=== PATIENT | female | born 1950 | race Caucasian/White ===

== ENCOUNTER 2020-06-05 18:30 | Observation (INO) ==
--- NOTE | 2020-06-05 19:16 | Emergency Department Note ---
Impression & Plan Left-sided chest pain, Pulmonary emboli, Pleuritic chest pain, Elevated d-dimer ED Provider Note NAME: CHAU FISHER AGE: 69 SEX: F : 1950 ARRIVES VIA: Walk-In INFORMANT: [Patient] ED PROVIDER(S): [Damian Johnson MD] CHIEF COMPLAINT: Shortness of breath HISTORY OF PRESENT ILLNESS: The patient is a 69-year-old female who presents to the ED with left-sided chest pain and dyspnea. Her symptoms have been present all day. The pain is worse to take a breath, worse to move and worse to lie flat. The pain is in the left arm and left chest. The pain is a 10/10. The patient does feel somewhat short of breath. There has been no cough or congestion. No fever. The patient has a history of DVT. She states that she has had some pain in the area of the right calf. She is concerned about DVT recurrence. No recent Covid exposures. There has been no trauma, she has not noticed any rash across the chest. The patient does admit to some occasional reflux and heartburn as of late. She has no known coronary disease. Her chest pain does not worsen with exertion. REVIEW OF SYSTEMS: See HPI for pertinent positives and negatives. A total of ten systems were reviewed and were otherwise negative. PMHx/PSHx: See Below SOCIAL HISTORY: See Below. PHYSICAL EXAM: GENERAL: Patient is in no acute distress. HEENT: No acute trauma, normocephalic atraumatic, mucous membranes moist, no nasal congestion, no scleral icterus. NECK: No stridor, no adenopathy, no meningismus, trachea is midline. LUNGS: Clear to auscultation bilaterally, no wheeze, no rhonchi, breath sounds equal. HEART: Without murmurs gallops or rubs, regular rate and rhythm. Chest: Tender to the lateral left lower chest wall. There is no rash. Pain does worsen with certain movements and with deep breathing. ABDOMEN: Soft, nontender, bowel sounds positive, no hernias, no peritonitis. EXTREMITIES: No cyanosis, mild bilateral pedal edema, full range of motion of all the joints without pain or difficulty, no signs for acute trauma. There are some varicose veins present in the area of the right calf. NEUROLOGIC: Oriented x 3, no acute motor or sensory deficits, no focal weakness. SKIN: No rash, no jaundice, no diaphoresis. DIFFERENTIAL DIAGNOSIS: Cardiac ischemia, aortic dissection, pulmonary embolism, DVT, pneumothorax, shingles, pneumonia, pericarditis, myocarditis, esophageal rupture, GERD, cholecystitis, pancreatitis, musculoskeletal, as well as other pathologies. EMERGENCY DEPARTMENT COURSE/PROCEDURES: ECG: Indication was chest pain. The ECG shows a normal sinus rhythm with a rate of 88. There is no ST elevation, no PVCs. QTC is 401. Continuous Cardiac Monitoring: An order was placed for continuous cardiac monitoring. The monitor shows a rate of 81 with normal sinus rhythm. MEDICAL DECISION MAKING: There is no leukocytosis or concerning anemia. There is a normal platelet count. No coagulopathy. D-dimer is elevated making PE/DVT more likely. There is no significant electrolyte abnormality or kidney failure. No worrisome liver enzyme elevation. No evidence for pancreatitis. ECG showed a sinus rhythm, no acute ischemia. Cardiac enzyme testing x1 is not consistent with acute cardiac injury. Chest film showed some potential atelectasis at the left base. There was no pneumothorax or CHF. Right leg ultrasound did not show any DVT however, some superficial thrombophlebitis was seen. Chest CT shows multiple bilateral pulmonary emboli, more so on the left. Some pulmonary infarcts were seen at the left base. There was a small left pleural effusion. The patient presents with left-sided chest pain. The chest pain was pleuritic. She had an elevated D-dimer. She has multiple bilateral pulmonary emboli by CT imaging. Given the multiple emboli, given the pulmonary infarcts, I do think a hospital stay is warranted. A hypercoagulable work-up was ordered. I spoke to the patient about her findings. I spoke with the case management. I did consult with the on-call hospitalist. The patient was given a dose of Lovenox subcu at the request of the hospitalist. Past Med/Surg History Medical History DVT (deep vein thrombosis) in Sjogren's disease Social History Smoking Status: Never smoker Results & Data (ED) Vital Signs Vital Signs - 24 hr 06/05/20 18:34 06/05/20 19:32 06/05/20 19:33 Temperature 36.0 C L Temperature Source Skin Pulse Rate 118 H 84 Pulse Rate [Apical] 81 Pulse Rate from SpO2 Sensor 83 Respiratory Rate 24 18 16 Blood Pressure 147/87 H 150/79 H Blood Pressure [Left Arm] 150/79 H Blood Pressure Mean 107 110 Blood Pressure Mean [Left Arm] 102 Pulse Oximetry 97 96 97 Oxygen Delivery Method Room Air Room Air Room Air Sepsis Recent Fever Within 48 Hours No Sepsis New/Unexplained Change in Mental Status N/A Sepsis Action Taken by Nursing No Action Required 06/05/20 20:00 06/05/20 20:30 Temperature Temperature Source Pulse Rate Pulse Rate [Apical] Pulse Rate from SpO2 Sensor 84 85 Respiratory Rate 17 19 Blood Pressure 139/82 146/76 H Blood Pressure [Left Arm] Blood Pressure Mean 97 101 Blood Pressure Mean [Left Arm] Pulse Oximetry 95 95 Oxygen Delivery Method Room Air Room Air Sepsis Recent Fever Within 48 Hours Sepsis New/Unexplained Change in Mental Status Sepsis Action Taken by Prison Medications Current Medication List: was personally reviewed by me Laboratory Data Attestation: I reviewed the patient's lab results. Result diagrams: 06/05/20 19:37 06/05/20 19:37 Lab Results 06/05/20 06/05/20 06/05/20 Range/Units 19:37 19:37 19:37 WBC 8.41 (4.8-10.8) K/uL RBC 4.53 (4.2-5.4) M/uL Hgb 13.5 (12.0-16.0) g/dL Hct 40.4 (37-47) % MCV 89.2 (80-100) fL MCH 29.8 (25-34) pg MCHC 33.4 (32-36) g/dL RDW Std Deviation 44.1 (36.4-46.3) fL RDW Coeff of Ancelmo 13.4 (11.5-14.5) % Plt Count 229 (130-400) K/uL MPV 9.2 (7.4-10.4) fL Immature Gran % (Auto) 0.1 % Neut % (Auto) 80.0 % Lymph % (Auto) 12.2 % [place] % (Auto) 7.1 % Eos % (Auto) 0.5 % Baso % (Auto) 0.1 % Neut # (Auto) 6.72 H (1.4-6.5) K/uL Lymph # (Auto) 1.03 L (1.2-3.4) K/uL [place] # (Auto) 0.60 H (0.11-0.59) K/uL Eos # (Auto) 0.04 (0-0.5) K/uL Baso # (Auto) 0.01 (0-0.2) K/uL Immature Gran # (Auto) 0.01 (0.00-0.02) K/uL PT 10.7 (9.0-12.0) Seconds INR 1.0 (0.9-1.1) APTT 25.0 (21.0-31.0) Seconds PTT Ratio 0.9 D-Dimer 3890 H* (0-500) ug/L FEU Sodium 139 (136-145) mmol/L Potassium 4.0 (3.5-5.1) mmol/L Chloride 107 (98-107) mmol/L Carbon Dioxide 26 (21-32) mmol/L Anion Gap 7.0 (3-11) BUN 14 (7-18) mg/dl Creatinine 0.96 (0.6-1.2) mg/dl Est Cr Clr Drug Dosing 52.5 ml/min Est GFR ( Amer) 70.4 Est GFR (Non-Af Amer) 60.8 BUN/Creatinine Ratio 14.5 (10-20) Glucose 114 H (70-99) mg/dl Calcium 9.4 (8.5-10.1) mg/dl Total Bilirubin 0.5 (0.2-1) mg/dl AST 17 (15-37) U/L ALT 26 (12-78) U/L Alkaline Phosphatase 75 (45-117) U/L Troponin I < 0.015 (0-0.045) ng/ml Total Protein 8.4 H (6.4-8.2) gm/dl Albumin 3.6 (3.4-5.0) gm/dl Globulin 4.8 H (2.5-4.0) gm/dl Albumin/Globulin Ratio 0.8 L (0.9-2) Lipase 146 (73-393) U/L Urine Color Urine Appearance (Clear) Urine pH (4.5-7.5) Ur Specific [place] (1.000-1.030) Urine Protein (Negative) Urine Glucose (UA) (Negative) Urine Ketones (Negative) Urine Blood (Negative) Urine Nitrite (Negative) Urine Bilirubin (Negative) Urine Urobilinogen (Negative) Ur Leukocyte Esterase (Negative) Urine RBC (0-4) /hpf Urine WBC (0-5) /hpf Ur Epithelial Cells (0-5) /lpf Urine Bacteria (Negative) 06/05/20 Range/Units 20:37 WBC (4.8-10.8) K/uL RBC (4.2-5.4) M/uL Hgb (12.0-16.0) g/dL Hct (37-47) % MCV (80-100) fL MCH (25-34) pg MCHC (32-36) g/dL RDW Std Deviation (36.4-46.3) fL RDW Coeff of Ancelmo (11.5-14.5) % Plt Count (130-400) K/uL MPV (7.4-10.4) fL Immature Gran % (Auto) % Neut % (Auto) % Lymph % (Auto) % [place] % (Auto) % Eos % (Auto) % Baso % (Auto) % Neut # (Auto) (1.4-6.5) K/uL Lymph # (Auto) (1.2-3.4) K/uL [place] # (Auto) (0.11-0.59) K/uL Eos # (Auto) (0-0.5) K/uL Baso # (Auto) (0-0.2) K/uL Immature Gran # (Auto) (0.00-0.02) K/uL PT (9.0-12.0) Seconds INR (0.9-1.1) APTT (21.0-31.0) Seconds PTT Ratio D-Dimer (0-500) ug/L FEU Sodium (136-145) mmol/L Potassium (3.5-5.1) mmol/L Chloride (98-107) mmol/L Carbon Dioxide (21-32) mmol/L Anion Gap (3-11) BUN (7-18) mg/dl Creatinine (0.6-1.2) mg/dl Est Cr Clr Drug Dosing ml/min Est GFR ( Amer) Est GFR (Non-Af Amer) BUN/Creatinine Ratio (10-20) Glucose (70-99) mg/dl Calcium (8.5-10.1) mg/dl Total Bilirubin (0.2-1) mg/dl AST (15-37) U/L ALT (12-78) U/L Alkaline Phosphatase (45-117) U/L Troponin I (0-0.045) ng/ml Total Protein (6.4-8.2) gm/dl Albumin (3.4-5.0) gm/dl Globulin (2.5-4.0) gm/dl Albumin/Globulin Ratio (0.9-2) Lipase (73-393) U/L Urine Color Yellow Urine Appearance Clear (Clear) Urine pH 7.0 (4.5-7.5) Ur Specific [place] 1.015 (1.000-1.030) Urine Protein Negative (Negative) Urine Glucose (UA) Negative (Negative) Urine Ketones Negative (Negative) Urine Blood Trace H (Negative) Urine Nitrite Negative (Negative) Urine Bilirubin Negative (Negative) Urine Urobilinogen Negative (Negative) Ur Leukocyte Esterase Trace H (Negative) Urine RBC 0-4 (0-4) /hpf Urine WBC 10-30 H (0-5) /hpf Ur Epithelial Cells >30 H (0-5) /lpf Urine Bacteria 1+ H (Negative) Administered Medications Discontinued Medications Ioversol (Optiray 320 125ml) 120 ml IV ONCE ONE Stop: 06/05/20 21:20 Last Admin: 06/05/20 21:20 Dose: 120 ml Documented by: [id number] Imaging Data Radiologist's Impression: XR chest 1V portable CLINICAL HISTORY: Atypical chest pain COMPARISON STUDY: No previous studies for comparison. FINDINGS: The heart is normal in size. There are minor left basilar opacity statistically atelectatic. There is no lobar consolidation. There is no failure. There are no pleural effusions.[ IMPRESSION: Minor left basilar opacities, likely atelectatic. No evidence of lobar consolidation Right leg ultrasound: There is no evidence for DVT within the right lower extremity. Right calf areas of superficial thrombophlebitis noted. Chest CT for PE: The study is positive for left more so than right multifocal pulmonary emboli mostly at the subsegmental and segmental levels. There is occlusive thrombi at the subsegmental branches of the left lower lobe. Some small patchy areas of opacity are seen at the left base which may represent atelectasis and/or infarct. There is a very small left pleural effusion. The thoracic aorta was unremarkable. There is no pericardial or right pleural effusion. Central airways are patent. Discharge Plan Visit Data Chief Complaint: Shortness of Breath/Dyspnea Stated Complaint: NECK PAIN TO RT ARM PAIN, RT SIDE PAIN, SOB ED Provider: Damian Johnson Discharge Problem: Left-sided chest pain, Pulmonary emboli, Pleuritic chest pain, Elevated d-dimer Patient Disposition: Admitted As Inpatient Condition: Good Forms Stand Alone Forms: [facility] Referrals Referrals: RYLAN VIDES [Other] Discharge Problem: Pulmonary emboli Qualifiers: Pulmonary embolism type: multiple subsegmental (without acute cor pulmonale) Qualified Code(s): I26.94 - Multiple subsegmental pulmonary emboli without acute cor pulmonale
[2020-06-05 19:48] LABS: Basophils # (auto) 0.01 K/uL (0-0.2); Basophils % (auto) 0.1 %; Eosinophils # (auto) 0.04 K/uL (0-0.5); Eosinophils % (auto) 0.5 %; Hematocrit (blood only) 40.4 % (37-47); Hemoglobin 13.5 g/dL (12.0-16.0); Immature Granulocytes # (auto) 0.01 K/uL (0.00-0.02); Immature Granulocytes % (auto) 0.1 %; Lymphocytes # (auto) 1.03 K/uL (1.2-3.4); Lymphocytes % (auto) 12.2 %; Mean Corpuscular Hemoglobin 29.8 pg (25-34); Mean Corpuscular Hgb Conc 33.4 g/dL (32-36); Mean Corpuscular Volume 89.2 fL (80-100); Mean Platelet Volume 9.2 fL (7.4-10.4); Monocytes % (auto) 7.1 %; Neutrophils # (auto) 6.72 K/uL (1.4-6.5); Platelet Count 229 K/uL (130-400); RDW Coefficient of Variation 13.4 % (11.5-14.5); RDW Standard Deviation 44.1 fL (36.4-46.3); Red Blood Count 4.53 M/uL (4.2-5.4); White Blood Count 8.41 K/uL (4.8-10.8)
--- NOTE | 2020-06-05 20:00 | XRay Report ---
XR chest 1V portable CLINICAL HISTORY: Atypical chest pain COMPARISON STUDY: No previous studies for comparison. FINDINGS: The heart is normal in size. There are minor left basilar opacity statistically atelectatic . There is no lobar consolidation. There is no failure. There are no pleural effusions.[ IMPRESSION: Minor left basilar opacities, likely atelectatic. No evidence of lobar consolidation ACT 112: Negative or not required by law. Electronically signed by: Juanito Matt M.D. 06/05/2020 7:59 PM
[2020-06-05 20:03] LABS: Partial Thromboplastin Ratio 0.9; Prothrombin Time 10.7 Seconds (9.0-12.0)
[2020-06-05 20:04] LABS: Alanine Aminotransferase 26 U/L (12-78); Albumin Level 3.6 gm/dl (3.4-5.0); Aspartate Aminotransferase 17 U/L (15-37); BUN Creatinine Ratio 14.5 (10-20); Blood Urea Nitrogen 14 mg/dl (7-18); Calcium 9.4 mg/dl (8.5-10.1); Carbon Dioxide 26 mmol/L (21-32); Chloride 107 mmol/L (98-107); Creatinine Clr Calc Pharmacy 52.5 ml/min; Est GFR (African American) 70.4; Est GFR (Non-African American) 60.8; Glucose 114 mg/dl (70-99); Lipase 146 U/L (73-393); Sodium 139 mmol/L (136-145)
[2020-06-05 20:09] LABS: Albumin Globulin Ratio 0.8 (0.9-2); Alkaline Phosphatase 75 U/L (45-117); Bilirubin,Total 0.5 mg/dl (0.2-1); Globulin 4.8 gm/dl (2.5-4.0); Total Protein 8.4 gm/dl (6.4-8.2); Troponin I < 0.015 ng/ml (0-0.045)
[2020-06-05 20:34] LABS: D Dimer 3890 ug/L FEU (0-500)
[2020-06-05 21:01] LABS: Appearance Urine Clear (Clear); Bilirubin Urine Negative (Negative); Blood Urine Trace (Negative); Color Urine Yellow; Glucose Urine UA Negative (Negative); Ketones Urine Negative (Negative); Leukocyte Esterase Urine Trace (Negative); Nitrite Urine Negative (Negative); Protein Urine Negative (Negative); Specific Gravity Urine 1.015 (1.000-1.030); Urobilinogen Urine Negative (Negative)
[2020-06-05] MEDS ORDERED: OPTIRAY 320 125ml IV ONE (21:19)
[2020-06-05 21:36] LABS: RBC Urine 0-4 /hpf (0-4)
[2020-06-05 21:37] LABS: Bacteria Urine 1+ (Negative); Epithelial Cell Urine >30 /lpf (0-5)
[2020-06-05] MEDS ORDERED: ENOXAPARIN 1 MG/KG SQ STA (21:51)
[2020-06-05] MEDS ORDERED: ENOXAPARIN 80 MG/0.8 ML SYR SQ STA (22:00)
--- NOTE | 2020-06-05 23:41 | History & Physical Report ---
Date of Service June 05, 2020 Assessment & Plan (1) Bilateral pulmonary embolism: Multifocal bilateral pulmonary emboli, left greater than right- Lower extremity venous Dopplers negative for DVT Placed on Lovenox 1 mg/kg subcu every 12 hours Family history of mother and maternal grandmother with pulmonary emboli. Emergency department as already ordered hypercoagulable work-up Present on Admission?: Yes (2) Hypothyroidism (acquired): Continue levothyroxine 25 mcg daily Present on Admission?: Yes (3) Sjogren's disease: Sjogren syndrome- Continue gabapentin 600 mg p.o. 3 times daily Present on Admission?: Yes (4) Dry eye syndrome: Continue Xiidra 1 drop OPB a.m. and p.m. Present on Admission?: Yes History of Present Illness Chief Complaint: The patient presents to the emergency department with complaint of left sided chest pain, shortness of breath and dyspnea on exertion Primary Care Provider: RYLAN VIDES The patient is a 69-year-old female with a past medical history including Sjogren's syndrome, hypothyroidism, and dry eye. She reports that both her mother and maternal grandmother have had clots in lungs. She reports that she had noted some right leg discomfort over the past few weeks, and has recently traveled to [place] from [facility] to be with family. She reports that she began to notice, after she got here, more significant pain in her right lower extremity, and then developed severe chest discomfort around 230 this a.m. which since it persisted throughout the day, prompted her to come to the emergency department for assessment. Significant abnormal laboratories: D-dimer 3890, glucose 114. Patient is COVID- 19 negative. Chest x-ray with no significant findings. CT angiography of chest was positive for left greater than right multifocal pulmonary embolism mostly at the segmental and subsegmental level. Occlusive at the subsegmental branches left lower lobe. Small patchy areas of opacity at the left base may represent atelectasis with developing infarct or infiltrate not excluded. Very small left pleural effusion. No pericardial or right pleural effusion. Allergies Allergy/AdvReac Type Severity Reaction Status Date / Time Penicillins Allergy Anaphylaxis Unverified 06/05/20 22:08 prochlorperazine Allergy Anaphylaxis Unverified 06/05/20 22:08 [From Compazine] Sulfa (Sulfonamide Allergy Hives Unverified 06/05/20 22:08 Antibiotics) Home Medications Medication Instructions Recorded Confirmed Type gabapentin 600 mg PO TID 06/05/20 06/05/20 History levothyroxine 25 mcg PO DAILY 06/05/20 06/05/20 History lifitegrast [Xiidra] 1 drp OPB AMPM 06/05/20 06/05/20 History Past Med/Surg History Medical History DVT (deep vein thrombosis) in Sjogren's disease Social History Smoking Status: Never smoker Hx Alcohol Use: No Hx Substance Use: No Preferred Language: Syriac Communication Ability: Effective 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 Beliefs That Will Affect Care: None Current Living Situation: Spouse Other Information That Helps Us Care for You: No Feels Safe at Home: Yes Safety Concerns: Feels Safe At This Time Assistive Devices: Glasses Review of Systems Review of Systems: The patient denies palpitations, cough, sore throat, fevers, chills, sweats, nausea, vomiting, diarrhea , constipation, abdominal pain, pelvic pain, blood in urine or stool, dysuria, urinary frequency or urgency, lightheadedness, dizziness, headache, memory loss, loss of consciousness, rash, abnormal bruising or bleeding, imbalance, focal or generalized weakness, generalized arthralgias or myalgias, neck pain, or night sweats. The review of systems is otherwise negative other than for that already noted above, and at least 10 systems have been reviewed. Physical Exam Physical Exam: The patient is awake, alert and oriented 3, well developed and well nourished, normocephalic and atraumatic, lying in bed and in no acute distress. HEENT--PERRL, EOMI, mucous membranes and oropharynx normal. Neck--supple. No JVD. No bruits. Thyroid normal, trachea midline, no adenopathy. Heart--normal S1 and S2. No murmurs, rubs or gallops. Lungs--clear bilaterally, no respiratory distress, no accessory muscle use. Abdomen--normal bowel sounds and soft. Nontender. Nondistended. Extremities--no cyanosis or clubbing. Right lower extremity with trace pretibial pitting edema. There are good distal pulses b/l. Dermatologic--normal skin turgor, normal color, no abnormal lymph nodes, no rash. Neurologic--cranial nerves II through XII grossly intact. Rheumatologic--normal range of motion. Psychiatric--normal affect. Results & Data Results & Data ([facility]) Vital Signs (Past 12 Hours) Vital Signs Temp Pulse Pulse Resp BP BP Pulse Ox 06/05/20 22:00 153/76 H 06/05/20 20:30 19 146/76 H 95 06/05/20 20:00 17 139/82 95 06/05/20 19:33 81 16 150/79 H 97 06/05/20 19:32 84 18 150/79 H 96 06/05/20 18:34 96.8 F L 118 H 24 147/87 H 97 Laboratory Results Laboratory Results WBC 8.41 K/uL (4.8-10.8) 06/05/20 19:37 RBC 4.53 M/uL (4.2-5.4) 06/05/20 19:37 Hgb 13.5 g/dL (12.0-16.0) 06/05/20 19:37 Hct 40.4 % (37-47) 06/05/20 19:37 MCV 89.2 fL (80-100) 06/05/20 19:37 MCH 29.8 pg (25-34) 06/05/20 19:37 MCHC 33.4 g/dL (32-36) 06/05/20 19:37 RDW Std Deviation 44.1 fL (36.4-46.3) 06/05/20 19:37 RDW Coeff of Ancelmo 13.4 % (11.5-14.5) 06/05/20 19:37 Plt Count 229 K/uL (130-400) 06/05/20 19:37 MPV 9.2 fL (7.4-10.4) 06/05/20 19:37 Immature Gran % (Auto) 0.1 % 06/05/20 19:37 Neut % (Auto) 80.0 % 06/05/20 19:37 Lymph % (Auto) 12.2 % 06/05/20 19:37 [place] % (Auto) 7.1 % 06/05/20 19:37 Eos % (Auto) 0.5 % 06/05/20 19:37 Baso % (Auto) 0.1 % 06/05/20 19:37 Neut # (Auto) 6.72 K/uL (1.4-6.5) H 06/05/20 19:37 Lymph # (Auto) 1.03 K/uL (1.2-3.4) L 06/05/20 19:37 [place] # (Auto) 0.60 K/uL (0.11-0.59) H 06/05/20 19:37 Eos # (Auto) 0.04 K/uL (0-0.5) 06/05/20 19:37 Baso # (Auto) 0.01 K/uL (0-0.2) 06/05/20 19:37 Immature Gran # (Auto) 0.01 K/uL (0.00-0.02) 06/05/20 19:37 PT 10.7 Seconds (9.0-12.0) 06/05/20 19:37 INR 1.0 (0.9-1.1) 06/05/20 19:37 APTT 25.0 Seconds (21.0-31.0) 06/05/20 19:37 PTT Ratio 0.9 06/05/20 19:37 D-Dimer 3890 ug/L FEU (0-500) H* 06/05/20 19:37 Sodium 139 mmol/L (136-145) 06/05/20 19:37 Potassium 4.0 mmol/L (3.5-5.1) 06/05/20 19:37 Chloride 107 mmol/L (98-107) 06/05/20 19:37 Carbon Dioxide 26 mmol/L (21-32) 06/05/20 19:37 Anion Gap 7.0 (3-11) 06/05/20 19:37 BUN 14 mg/dl (7-18) 06/05/20 19:37 Creatinine 0.96 mg/dl (0.6-1.2) 06/05/20 19:37 Est Cr Clr Drug Dosing 52.5 ml/min 06/05/20 19:37 Est GFR ( Amer) 70.4 06/05/20 19:37 Est GFR (Non-Af Amer) 60.8 06/05/20 19:37 BUN/Creatinine Ratio 14.5 (10-20) 06/05/20 19:37 Glucose 114 mg/dl (70-99) H 06/05/20 19:37 Calcium 9.4 mg/dl (8.5-10.1) 06/05/20 19:37 Total Bilirubin 0.5 mg/dl (0.2-1) 06/05/20 19:37 AST 17 U/L (15-37) 06/05/20 19:37 ALT 26 U/L (12-78) 06/05/20 19:37 Alkaline Phosphatase 75 U/L (45-117) 06/05/20 19:37 Troponin I < 0.015 ng/ml (0-0.045) 06/05/20 19:37 Total Protein 8.4 gm/dl (6.4-8.2) H 06/05/20 19:37 Albumin 3.6 gm/dl (3.4-5.0) 06/05/20 19:37 Globulin 4.8 gm/dl (2.5-4.0) H 06/05/20 19:37 Albumin/Globulin Ratio 0.8 (0.9-2) L 06/05/20 19:37 Lipase 146 U/L (73-393) 06/05/20 19:37 Urine Color Yellow 06/05/20 20:37 Urine Appearance Clear (Clear) 06/05/20 20:37 Urine pH 7.0 (4.5-7.5) 06/05/20 20:37 Ur Specific [place] 1.015 (1.000-1.030) 06/05/20 20:37 Urine Protein Negative (Negative) 06/05/20 20:37 Urine Glucose (UA) Negative (Negative) 06/05/20 20:37 Urine Ketones Negative (Negative) 06/05/20 20:37 Urine Blood Trace (Negative) H 06/05/20 20:37 Urine Nitrite Negative (Negative) 06/05/20 20:37 Urine Bilirubin Negative (Negative) 06/05/20 20:37 Urine Urobilinogen Negative (Negative) 06/05/20 20:37 Ur Leukocyte Esterase Trace (Negative) H 06/05/20 20:37 Urine RBC 0-4 /hpf (0-4) 06/05/20 20:37 Urine WBC 10-30 /hpf (0-5) H 06/05/20 20:37 Ur Epithelial Cells >30 /lpf (0-5) H 06/05/20 20:37 Urine Bacteria 1+ (Negative) H 06/05/20 20:37 SARS-CoV-2 Ag (Rapid) Negative (Negative) 06/05/20 22:24 Diagnostic Findings [facility], [id number] XRay Report Patient: Latha FISHER Date: 06/05/20MR#: [id number]: [address] [place] ID:[id number]: Date: [address] [place] [address] Zip: [place] [id number]: 69Location: EDSex: FRoom/Bed:Att Phy:Diagnosis: NECK PAIN TO RT ARM PAIN, RT SIDE PAIN, SOBPri Phy: RYLAN VIDES MService Date: 06/05/20Fam Phy:Interpreting Phy: Juanito Matt [facility] Phy: Ordering Phy: Damian Johnson M.D. cc: ~ XR chest 1V portable CLINICAL HISTORY: Atypical chest pain COMPARISON STUDY: No previous studies for comparison. FINDINGS: The heart is normal in size. There are minor left basilar opacity statistically atelectatic. There is no lobar consolidation. There is no failure. There are no pleural effusions.[ IMPRESSION: Minor left basilar opacities, likely atelectatic. No evidence of lobar consolidation ACT 112: Negative or not required by law. Electronically signed by: Juanito Matt M.D. 06/05/2020 7:59 PM Dictated: 06/05/201957Transcribed: 06/05/201957 [facility] Patient: CHAU FISHER (Female) : 52 Status: ER Date: 06/05/20 21:26 Room #: History: rt leg pains Slices: 34 Priors: Tech: Aury Escobar @ [phone] Exams: US VENOUS RIGHT LOWER EXTREMITY Contrast: Accession Numbers: [id number] Preliminary Findings Only See Final Report For Complete Findings US VENOUS RIGHT LOWER EXTREMITY: No evidence of DVT within the right lower extremity Right calf areas of superficial thrombophlebitis noted Radiologist: Lance Segura M.D. Study ready at 21:28 and initial results transmitted at 21:33 *This report constitutes a preliminary interpretation only. Non-acute findings felt to be unrelated to the clinical presentation may not be discussed in this report. The study will be interpreted and a final report will be generated by the local Radiologist the following shift. To reach the hospital radiology department call [phone]. If a discrepancy is found between the preliminary and final interpretations of this study, please notify us via our Client Portal at [email or web address].You can also fax this report with a description of the discrepancy, or include the final report, to our daytime fax number [phone].If faxing, please indicate the severity of discrepancy using one of the following categories: [ ] 1 - Agree/Informational [ ] 2 - Unlikely to Affect Management [ ] 3 - Possible Eventual Change of Management [ ] 4 - Probable Immediate Change of Management For all other patient related information, please fax us at [phone]. [id number] [facility] Patient: CHAU FISHER (Female) : 52 Status: ER Date: 06/05/20 21:27 Room #: History: left sided shoulder pain radiating to chest Slices: 750 Priors: Tech: Sang Pepe @ [phone] Exams: CTA CHEST Contrast: IV Amt: 120 Accession Numbers: [id number] Preliminary Findings Only See Final Report For Complete Findings CTA CHEST: The study is positive for left greater than right multifocal pulmonary embolism mostly at the segmental and subsegmental level Occlusive at the subsegmental branches left lower lobe Small patchy areas of opacity at the left base may represent atelectasis with developing infarct or infiltrate not excluded Very small left pleural effusion Thoracic aorta are within limits No pericardial or right pleural effusion The central airways are patent Radiologist: Lance Segura M.D. Study ready at 21:28 and initial results transmitted at 21:41 Communications: Clear Time Type Notes 06/05/20 21:42 Call Doctor Regarding Above results, called Dr. Johnson on 06/05 21:42 (-05:00) *This report constitutes a preliminary interpretation only. Non-acute findings felt to be unrelated to the clinical presentation may not be discussed in this report. The study will be interpreted and a final report will be generated by the local Radiologist the following shift. To reach the hospital radiology department call [phone]. If a discrepancy is found between the preliminary and final interpretations of this study, please notify us via our Client Portal at [email or web address] [email or web address].You can also fax this report with a description of the discrepancy, or include the final report, to our daytime fax number [phone].If faxing, please indicate the severity of discrepancy using one of the following categories: [ ] 1 - Agree/Informational [ ] 2 - Unlikely to Affect Management [ ] 3 - Possible Eventual Change of Management [ ] 4 - Probable Immediate Change of Management For all other patient related information, please fax us at [phone]. [id number] Code Status & VTE Plan Code Status Full code VTE Prophylaxis Plan VTE Prophylaxis will be ordered: Yes PG Care Time/CCT Total # of Minutes Spent Total Time Spent with Patient: Total time spent is greater than 50% in coordination of care (as documented) at patient's floor/unit and/or counseling patient: Coding Level of Care Code 58619 OBS Care - Level 3 Diagnoses Bilateral pulmonary embolism I26.99 Hypothyroidism (acquired) E03.9 Sjogren's disease M35.00 Dry eye syndrome H04.129
[2020-06-06] MEDS ORDERED: ONDANSETRON INJ 2 MG/ML 2 ML VIAL IV PRN (01:32)
[2020-06-06] MEDS ORDERED: ALUMINUM/MAGNESIUM SUSP 30 ML UDC PO PRN (01:32)
[2020-06-06] MEDS ORDERED: ACETAMINOPHEN 325 MG TAB PO PRN (01:32)
[2020-06-06] MEDS ORDERED: MAGNESIUM HYDROXIDE SUSP 30 ML UDC PO PRN (01:32)
[2020-06-06] MEDS ORDERED: LEVOTHYROXINE SODIUM 25 MCG TABLET PO SCH (06:30)
--- NOTE | 2020-06-06 06:42 | Ultrasound Report ---
US venous doppler LE RT HISTORY: 69 years-old Female hist dvt, calf pain, swelling acute pain and swelling of the right lowe r extremity COMPARISON: None TECHNIQUE: Multiple real-time sonographic images of the right lower extremity deep venous structures were obtained assessing grayscale appearance, color and spectral flow FINDINGS: Occlusive superficial venous thrombosis noted within the mid and distal calf extending for a length o f greater than 5 cm. Normal flow, compressibility, phasicity and augmentation of the lower extremity deep venous structure s. IMPRESSION: 1. No sonographic evidence of deep venous thrombosis. 2. Long segment occlusive superficial venous thrombus. ACT 112: Negative or not required by law. The above report was generated using voice recognition software. It may contain grammatical, syntax o r spelling errors. Electronically signed by: Edis Courtney M.D. 06/06/2020 6:41 AM
--- NOTE | 2020-06-06 08:12 | CT Scan Report ---
CT ANGIOGRAM OF THE CHEST CLINICAL HISTORY: Atypical chest pain. Possible pulmonary embolism. COMPARISON STUDY: Chest x-ray dated 06/05/2020 TECHNIQUE: Following the IV administration of 120 mL of Optiray-320, CT angiogram of the thorax was p erformed from the thoracic inlet to the lung bases utilizing the pulmonary embolus protocol. Images a re reviewed in the axial, sagittal, and coronal planes. IV contrast was administered without complica tion. MIP imaging was performed. A dose lowering technique was utilized adhering to the principles o f ALARA. CT DOSE: 241.88 mGy.cm FINDINGS: No pathologically enlarged axillary mediastinal or hilar lymph nodes were visualized. There was no evidence of thoracic aortic dilatation. There are right upper lobe, left upper lobe, and left lower lobe pulmonary artery filling defects. Th e findings are indicative of acute bilateral pulmonary embolism. Small left pleural effusion There are left basilar airspace opacities, likely atelectatic, although a developing infarct cannot b e excluded. There is a 3 mm right lower lobe pulmonary nodule. A few additional punctate pulmonary no dules are visualized. In a low-risk patient, no further follow-up is indicated. IMPRESSION: 1. Acute bilateral pulmonary embolism 2. Small left pleural effusion ACT 112: Negative or not required by law. Electronically signed by: Juanito Matt M.D. 06/06/2020 8:10 AM
[2020-06-06] MEDS: GABAPENTIN 600 MG TAB PO SCH ×2 (08:49→13:53)
[2020-06-06] MEDS ORDERED: ENOXAPARIN 80 MG/0.8 ML SYR SQ SCH (09:00)
[2020-06-06] MEDS ORDERED: ENOXAPARIN 1 MG/KG SC SCH (10:00)
--- NOTE | 2020-06-06 13:43 | Electrocardiogram Report ---
Test Reason : Blood Pressure : / mmHG Vent. Rate : 088 BPM Atrial Rate : 088 BPM P-R Int : 140 ms QRS Dur : 066 ms QT Int : 332 ms P-R-T Axes : 064 059 066 degrees QTc Int : 401 ms Normal sinus rhythm Normal ECG No previous ECGs available Confirmed by Hector Kapoor ([id number]) on 06/06/2020 1:43:25 PM Referred By: REFERRED SELF Confirmed By:Hector Kapoor
--- NOTE | 2020-06-06 16:16 | XCELERA ---
[id number]
--- NOTE | 2020-06-06 16:32 | Discharge Summary ---
Date of Service June 06, 2020 Admission HPI Per Admitting Provider The patient is a 69-year-old female with a past medical history including Sjogren's syndrome, hypothyroidism, and dry eye. She reports that both her mother and maternal grandmother have had clots in lungs. She reports that she had noted some right leg discomfort over the past few weeks, and has recently traveled to [place] from [facility] to be with family. She reports that she began to notice, after she got here, more significant pain in her right lower extremity, and then developed severe chest discomfort around 230 this a.m. which since it persisted throughout the day, prompted her to come to the emergency department for assessment. Significant abnormal laboratories: D-dimer 3890, glucose 114. Patient is COVID- 19 negative. Chest x-ray with no significant findings. CT angiography of chest was positive for left greater than right multifocal pulmonary embolism mostly at the segmental and subsegmental level. Occlusive at the subsegmental branches left lower lobe. Small patchy areas of opacity at the left base may represent atelectasis with developing infarct or infiltrate not excluded. Very small left pleural effusion. No pericardial or right pleural effusion. Principal Diagnosis Pt is feeling much improved. She states that her chest pain was a "30/10" when she got here, but now it is 7/10. No SOB. R LE pain is also much improved. Pt denies fever, abd pain, n/v/c/d, LE swelling. Discharge Exam Constitutional WD/WN, vitals as above Eyes normal visual valadez by confrontation and + anicteric sclerae Neck normal visual inspection and trachea midline Respiratory normal respiratory effort, lungs clear to auscultation Cardiovascular Rate/Rhythm: regular rate and regular rhythm Gastrointestinal (Abdomen) Inspection/Auscultation: abdomen not distended Percussion/Palpation: abdomen soft; abdomen nontender Musculoskeletal Head/Neck/Chest: normocephalic and head atraumatic Skin no rashes, warm and dry Neurologic awake; not confused Speech / Cognition: normal speech Psychiatric A+Ox3, euthymic affect Discharge Data Allergies Allergy/AdvReac Type Severity Reaction Status Date / Time Penicillins Allergy Anaphylaxis Unverified 06/05/20 22:08 prochlorperazine Allergy Anaphylaxis Unverified 06/05/20 22:08 [From Compazine] Sulfa (Sulfonamide Allergy Hives Unverified 06/05/20 22:08 Antibiotics) Consultations 06/05/20 21:54 ED Decision to Admit Stat 06/06/20 01:32 Consult Case Management - Discharge Planning Routine Ordered Studies 06/05/20 19:08 US venous doppler LE RT Urgent 06/05/20 19:09 CT angio chest PE protocol Urgent Hospital Course (1) Bilateral pulmonary embolism: Multifocal bilateral pulmonary emboli, left greater than right- Lower extremity venous Dopplers negative for DVT, SVT noted Placed on Lovenox 1 mg/kg subcu every 12 hours on admission but transitioned to eliquis for d/c Family history of mother and maternal grandmother and brother with pulmonary emboli. Emergency department as already ordered hypercoagulable work-up ECHO noted for EF 60-65% without valvular pathology Advised that if pt has genetic reason for PE, family should have genetic testing as well (2) Hypothyroidism (acquired): Continue levothyroxine 25 mcg daily (3) Sjogren's disease: Sjogren syndrome- Continue gabapentin 600 mg p.o. 3 times daily (4) Dry eye syndrome: Continue Xiidra 1 drop OPB a.m. and p.m. (5) Abnormal finding on urinalysis: UA on admission noted for trace leuk est, neg nitrites Urine cx pending Pt is asx Total Time Total Time Spent Total Time Spent (In Minutes): >30 Total Time Includes: Examination of the Patient, Discharge Planning, Medication Reconciliation, Communication With Other Providers and Other Discharge Plan Discharge Items Patient Disposition: Home - Self-Care Reason For Visit: BILATERAL PULMONARY EMBOLI Discharge Diagnosis: Bilateral pulmonary emboli Condition on Discharge: Good Activity: Resume your previous activity Non-emergency contact: Primary Care Provider Call non-emergency contact if: you have any medication questions and your symptoms worsen Follow-up/Referrals: Christine Griffin DO [Primary Care Provider] - Diet: Regular Addtl Attending Provider Instructions: You should follow up with your PCP once you return back home. If you have genetic reasons for your blood clots, your other family members should be tested as well. Pending Studies at Discharge: Yes Studies:: Hypercoag panel Stand-Alone Forms: My [employer], Smoking Cessation Medications and DC Order Prescriptions: New Eliquis 5 mg tablet 5 mg PO Q12H Qty: 74 RF: 0 Continued levothyroxine 25 mcg Tablet 25 mcg PO DAILY RF: 0 Xiidra 5 % Dropperette 1 drp OPB AMPM RF: 0 gabapentin 600 mg Tablet 600 mg PO TID RF: 0 Discharge Orders: Discharge Order (Routine); Ordered 06/06/20 Ordered By: Jessi Wilson Admission Data Admit Date/Time: 06/05/20 23:39 Attending Provider: Jessi Wilson Admit Provider: Manuel Ash Primary Care Provider: Christine Griffin Other Providers: Manuel Ash Other Interventions: Discharge Summary Assessment (RN) Last Done: 06/06/20 15:41 Coding Level of Care Code D/C Day Management >30 mins Diagnoses Bilateral pulmonary embolism I26.99 Hypothyroidism (acquired) E03.9 Sjogren's disease M35.00 Dry eye syndrome H04.129 Abnormal finding on urinalysis R82.90
[2020-06-08 07:02] LABS: B2 Glycoprotein IgG <9 SGU (<=20); B2 Glycoprotein IgM <9 SMU (<=20); Protein S Functional(Activity) 73 % (60-140)
== END 2020-06-06 17:00 | disposition home or self-care (01) ==
LOC: ED 18:30 → 2N 18:30 → SUATTDRO 23:39 → 2N 06-06 01:14